=== PATIENT | female | born 1965 | race Caucasian/White ===

== ENCOUNTER → 2017-06-09 | Outpatient (CLI) | payer OTHER ==
[~2017-06-09] MED LIST: CLEO300C2 PO; LISINOPRI; SULF1TAB47 PO; TRIL150T PO; ZONEGRAN; [UNRECOGNIZED DRUG - MIXTURE]
--- NOTE | 2017-06-09 11:47 | RADRPT ---
EXAM DATE/TIME: 06/09/2017 09:28 [place] COMPARISON: No previous studies available for comparison. INDICATIONS : Enlarged liver. MEDICAL HISTORY : Hypertension. Seizures. SURGICAL HISTORY : None. ENCOUNTER: Initial ACUITY: > 1 year PAIN SCORE: 0/10 LOCATION: Bilateral upper quadrant MEASUREMENTS: LIVER: 18.8 cm length COMMON DUCT: 6 mm RIGHT KIDNEY: 11.0 x 5.4 x 4.9 cm SPLEEN: 11.8 cm length FINDINGS: LIVER: Echotexture is normal. The liver is at the upper limits of normal in size. No intrahepatic biliary du ctal dilation is identified. COMMON DUCT: No intraluminal mass or stone visualized. GALLBLADDER: Contains no stones, demonstrates no wall thickening or pericholecystic fluid. PANCREAS: The visualized portions are within normal limits. RIGHT KIDNEY: No hydronephrosis, stone or mass. SPLEEN: No focal lesion. CONCLUSION: 1. The liver is at the upper limits of normal in size. It measured 18.8 CM. No intrahepatic biliary d uctal dilation is present. Tae Miller MD on June 09, 2017 at 11:36 Board Certified Radiologist. This report was verified electronically.
== END ==
LOC: HRAD 08:58
PROVIDERS: ATTEND Family Medicine
DX: R16.0 Hepatomegaly, not elsewhere classified (principal)
CPT/HCPCS: 76705